=== PATIENT | female | born 1990 | race Caucasian/White ===

== ENCOUNTER 2020-05-05 21:01 | Inpatient (IN) ==
[~2020-05-05 21:01] MED LIST: OXYTOCIN/LR 20 UNIT/1,000 ML BAG IV ONE
[2020-05-05] MEDS ORDERED: ONDANSETRON 4 MG/2 ML VIAL IV PRN (21:07)
[2020-05-05] MEDS ORDERED: LACTATED RINGERS 500 ML IV PRN (21:07)
[2020-05-05 21:39] LABS: Basophils % 0.2 % (0.0-0.8); Eosinophils # 0.1 10*3/uL (0.0-0.87); Eosinophils % 0.8 % (0.00-10.9); Hematocrit 32.3 VOL% (35.7-47.0); Hemoglobin 10.8 GM/DL (12.0-16.0); Immature Granulocytes % 0.5 %; Immature Granulocytes Absolute 0.05 #; Lymphocytes # 1.2 10*3/uL (1.4-4.0); Mean Corpuscular HGB Conc 33.4 GM/DL (32-36); Mean Corpuscular Volume 96.1 FL (87-102); Mean Platelet Volume 9.4 FL (9.6-12.0); Neutrophils % 80.5 % (38.7-73.9); Platelet Count 208 T/CUMM (130-400); Red Blood Count 3.36 MC/CUMM (3.8-5.5); Red Cell Distribution Width 12.2 % (9.3-17.3); White Blood Count 10.9 T/CUMM (4-12)
[2020-05-05 22:01] LABS: Alanine Aminotransferase 14 U/L (13-56); Albumin 2.6 G/DL (3.4-5.0); Alkaline Phosphatase 78 U/L (45-117); Aspartate Amino Transferase 18 U/L (0-37); Bilirubin,Total < 0.39 MG/DL (0.2-1.0); Blood Urea Nitrogen 6 MG/DL (7-18); Calcium 8.3 MG/DL (8.5-10.1); Estimated Glom Filtration Rate 143 ML/MIN; Glucose 98 MG/DL (74-106); Osmolality,Calculated 272.7 MOS/KG (273-304); Total Protein 6.1 G/DL (6.4-8.3)
[2020-05-05] MEDS: IBUPROFEN 800 MG TABLET PO PRN (22:50)
[2020-05-05 23:06] LABS: Apearance,Urine CLOUDY (Clear); Bilirubin,Urine Negative (Negative); Blood, Urine Large mg/dL (Negative); Glucose,Urine (UA) Negative (Negative); Ketones,Urine 80 mg/dL (Negative); Mucus,Urine Few /LPF (Occasional); Nitrite,Urine Negative (Negative); Protein,Urine 100 MG/DL; RBC,Urine 1931 /HPF (0-4); Squamous Epithelial Cell,Urine Occasional /HPF (0-10); Urine Color Yellow (Yellow); Urine Specific Gravity 1.021 (1.001-1.035); Urine Urobilinogen < 2.0 EU/DL (0.2-1.0); WBC,Urine 6 /HPF (0-6)
[2020-05-05 23:20] LABS: Barbiturates Screen,Urine Negative (Negative); Benzodiazepines Screen,Urine Negative (Negative); Cannabinoid Screen,Urine Positive (Negative); Opiate Screen,Urine Negative (Negative); Phencyclidine Screen,Urine Negative (Negative)
[2020-05-06 05:42] LABS: Basophils % 0.2 % (0.0-0.8); Eosinophils # 0.1 10*3/uL (0.0-0.87); Eosinophils % 0.8 % (0.00-10.9); Hematocrit 28.9 VOL% (35.7-47.0); Hemoglobin 9.8 GM/DL (12.0-16.0); Immature Granulocytes % 0.4 %; Immature Granulocytes Absolute 0.05 #; Lymphocytes # 1.6 10*3/uL (1.4-4.0); Lymphocytes % 12.2 % (21.3-54.2); Mean Corpuscular HGB Conc 33.9 GM/DL (32-36); Mean Platelet Volume 8.9 FL (9.6-12.0); Monocytes % 7.2 % (1.7-12.7); Neutrophils % 79.2 % (38.7-73.9); Platelet Count 180 T/CUMM (130-400); Red Blood Count 2.98 MC/CUMM (3.8-5.5); Red Cell Distribution Width 12.1 % (9.3-17.3)
[2020-05-06] MEDS ORDERED: DOCUSATE SODIUM 100 MG CAPSULE PO SCH (09:00)
[2020-05-06] MEDS: IBUPROFEN 800 MG TABLET PO PRN (09:19)
[2020-05-06] MEDS ORDERED: WITCH HAZEL PADS 100/JAR TOP PRN (09:46)
[2020-05-06] MEDS ORDERED: HYDROCORTISONE 2.5% RECTAL CREAM 30 GM TUBE TOP PRN (09:47)
[2020-05-06 11:51] VITALS: BP 103/55
== END 2020-05-06 17:45 | disposition home or self-care (01) | DRG 560 ==
LOC: N.LD 21:01 → N.OB 23:33
PROVIDERS: ADMIT Obstetrics & Gynecology; ATTEND Obstetrics & Gynecology